=== PATIENT | female | born 1980 | race Caucasian/White ===

== ENCOUNTER 2016-09-16 09:23 | Emergency (ER) | payer OTHER ==
[~2016-09-16] VITALS: Ht 160 cm; Wt 54.4 kg
[2016-09-16 09:23] VITALS: BP 154/99; PULSE 80; RESP 19; TEMP 97.9; O2SAT 98
--- NOTE | 2016-09-16 09:23 | NUR ---
BROUGHT IN BY KUNAL TELLO, PLACED IN BED #5 AND TRIAGED. WILL ASSUME CARE
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
--- NOTE | 2016-09-16 09:30 | NUR ---
DR STRICKLAND AT BEDSIDE FOR EVALUATION
[2016-09-16] MEDS ORDERED: IBUPROFEN 600 MG TABLET PO ONE (09:45)
[2016-09-16] MEDS ORDERED: LORazepam 1 MG TABLET PO ONE (09:45)
--- NOTE | 2016-09-16 09:50 | NUR ---
TAKEN TO RADIOLOGY VIA [facility]
--- NOTE | 2016-09-16 10:34 | NUR ---
DR STRICKLAND AT BEDSIDE FOR RE-EVAL AND SPEAKING WITH PT REGARDING XRAY RESULTS
[2016-09-16 10:57] VITALS: BP 128/68; PULSE 78; RESP 18; TEMP 97; O2SAT 97
--- NOTE | 2016-09-16 10:57 | NUR ---
Patient given written and verbal discharge instructions and verbalizes understanding. ER MD discussed with patient the results and treatment provided. Given copies of tests performed in ER. Patient in stable condition. ID arm band removed. Rx of IBUPROFEN given. Patient educated on pain management and to follow up with PMD. Pain Scale 0/10. Opportunity for questions provided and answered.
== END 2016-09-16 10:57 | disposition home or self-care (01) ==
LOC: SED 09:23
DX: S16.1XXA Strain of muscle, fascia and tendon at neck level, initial encounter (principal); S50.812A Abrasion of left forearm, initial encounter; Z88.2 Allergy status to sulfonamides; Z88.1 Allergy status to other antibiotic agents; V89.2XXA Person injured in unspecified motor-vehicle accident, traffic, initial encounter; Y93.89 Activity, other specified; Y92.89 Other specified places as the place of occurrence of the external cause; Y99.8 Other external cause status
CPT/HCPCS: 70450-TC; 71010; 72125-TC; 99284